=== PATIENT | male | born 1980 | race Caucasian/White ===

== ENCOUNTER → 2018-03-11 | Emergency (ER) | payer SELFPAY ==
[~2018-03-11] VITALS: Ht 165.1 cm; Wt 75.9 kg
[~2018-03-11] MED LIST: ATIVAN2 MG PO; PRINIVIL20 MG PO; ZESTRIL 20MG TA20 MG PO
[2018-03-11 13:48] VITALS: BP 150/88; TEMP 97.8
[2018-03-11 16:01] LABS: BASO % 0.5 % (0.0-2.0); EOS # 0.1 (0.0-0.7); EOS % 1.1 % (0-4.0); GRAN # 6.4 (1.4-6.5); GRAN % 76.1 % (42.2-75.2); HEMATOCRIT 39.1 % (42.0-52.0); LYMPH # 1.6 (1.2-3.4); LYMPH % 18.7 % (20.0-51.0); MEAN CELL VOLUME 67 fl (80.0-100.0); MEAN CORPUSCULAR HEMOGLOBIN 21 pg (27.0-31.0); MEAN CORPUSCULAR HGB CONC 31 g/dl (33.0-37.0); MEAN PLATELET VOLUME 11.9 fl (7.4-10.4); MONO # 0.3 (0.1-0.6); MONO % 3.2 % (1.7-9.3); PLATELET COUNT 153 K/mm3 (130-400); REDCELL DISTRIBUTION WIDTH-CV 14.8 % (11.5-14.5)
[2018-03-11 16:16] LABS: BILIRUBIN,TOTAL 0.8 mg/dL (0.0-1.0); CALCIUM 8.8 mg/dL (8.4-10.2); CREATININE, serum 0.9 mg/dL (0.66-1.25); TOTAL PROTEIN 6.8 gm/dL (6.4-8.2)
[2018-03-11 16:42] LABS: TSH w REFLEX 1.33 uIU/mL (0.465-4.680)
[2018-03-11 17:41] VITALS: PULSE 72
== END ==
LOC: COL.ER 13:39
PROVIDERS: Physician Assistant
DX: R07.89 Other chest pain (principal); F41.1 Generalized anxiety disorder; I10 Essential (primary) hypertension; G40.909 Epilepsy, unspecified, not intractable, without status epilepticus

== ENCOUNTER → 2018-05-26 | Outpatient (CLI) | payer BC | LOC: COL.RAD 07:29 | DX: K76.0 Fatty (change of) liver, not elsewhere classified (principal); K59.00 Constipation, unspecified ==

== ENCOUNTER 2018-09-29 20:53 | Emergency (ER) | payer BC ==
[~2018-09-29] VITALS: Ht 167.6 cm; Wt 79.5 kg
[2018-09-29 21:09] VITALS: BP 137/93; TEMP 97.5
[2018-09-29] MEDS ORDERED: CLARITIN 1010 MG/TAB PO (21:54)
[2018-09-29] MEDS ORDERED: ALLEGRA 180MG180 MG PO (21:54)
[2018-09-29 22:00] VITALS: PULSE 82
[2018-09-30] MEDS ORDERED: CARAFATE 1GM1 G PO (01:29)
[2018-09-30] MEDS ORDERED: ZANTAC 150MG T150 MG PO (01:29)
[2018-09-30] MEDS ORDERED: PRINIVIL10 MG PO (01:29)
== END 2018-09-29 22:00 | disposition home or self-care (01) ==
LOC: COL.ER 20:53
DX: J32.9 Chronic sinusitis, unspecified (principal); I10 Essential (primary) hypertension

== ENCOUNTER 2018-10-22 23:15 | Emergency (ER) | payer BC ==
[~2018-10-22] VITALS: Ht 167.6 cm; Wt 72.7 kg
[~2018-10-22 23:15] MED LIST changes: +ALLEGRA 180MG180 MG PO; +CARAFATE 1GM1 G PO; +CLARITIN 1010 MG/TAB PO; +PRINIVIL10 MG PO; +ZANTAC 150MG T150 MG PO
[2018-10-22 23:25] VITALS: TEMP 97.1
[2018-10-22] MEDS ORDERED: LINZESS145CAP PO (23:28)
[2018-10-22 23:50] LABS: BASO # 0.1 (0.0-0.2); BASO % 0.9 % (0.0-2.0); EOS # 0.5 (0.0-0.7); EOS % 6.5 % (0-4.0); GRAN % 52.8 % (42.2-75.2); HEMATOCRIT 40.3 % (42.0-52.0); HEMOGLOBIN 12.4 g/dl (13.5-18.0); LYMPH # 2.5 (1.2-3.4); LYMPH % 33.7 % (20.0-51.0); MEAN CELL VOLUME 67 fl (80.0-100.0); MEAN CORPUSCULAR HEMOGLOBIN 21 pg (27.0-31.0); MEAN CORPUSCULAR HGB CONC 31 g/dl (33.0-37.0); MEAN PLATELET VOLUME 11.7 fl (7.4-10.4); MONO # 0.4 (0.1-0.6); MONO % 5.2 % (1.7-9.3); PLATELET COUNT 178 K/mm3 (130-400); RED BLOOD COUNT 6.05 M/mm3 (4.20-5.60); REDCELL DISTRIBUTION WIDTH-CV 15.2 % (11.5-14.5)
[2018-10-23 00:04] LABS: ALANINE AMINOTRANSFERASE 31 U/L (21-72); ALBUMIN 4.5 gm/dL (3.5-5.0); ALKALINE PHOSPHATASE 65 U/L (50-136); ANION GAP 9 mmol/L (7-16); AST,SGOT 36 U/L (15-37); BLOOD UREA NITROGEN 13 mg/dL (9-20); C-REACTIVE PROTEIN < 0.5 mg/dL (0.0-0.9); CALCIUM 9.3 mg/dL (8.4-10.2); CARBON DIOXIDE 27 mmol/L (22-30); CHLORIDE 101 mmol/L (98-107); CREATININE, serum 1.01 (0.66-1.25); GLUCOSE 99 mg/dL (74-106); LIPASE 115 U/L (23-300); MAGNESIUM 1.6 mg/dL (1.6-2.3); SODIUM 137 mmol/L (137-145); TOTAL PROTEIN 7.5 gm/dL (6.4-8.2)
[2018-10-23 00:20] LABS: COLLECTION METHOD CLEAN CATCH
[2018-10-23 00:29] LABS: PH 6 (5-8); SQUAMOUS EPITHELIAL None Seen /hpf; URINE APPEARANCE Clear; URINE BACTERIA None Seen /hpf; URINE BILIRUBIN Negative (NEGATIVE); URINE BLOOD Negative (NEGATIVE); URINE COLOR Straw; URINE GLUCOSE Negative (NEGATIVE); URINE KETONE Negative (NEGATIVE); URINE LEUKOCYTE ESTERASE Negative (NEGATIVE); URINE NITRATE Negative (NEGATIVE); URINE PROTEIN(semi-quant) Negative (NEGATIVE); URINE RBC None Seen /hpf; URINE UROBILINOGEN Negative (NEGATIVE)
[2018-10-23] MEDS ORDERED: PROTONIX 40MG T40 MG PO (01:16)
[2018-10-23] MEDS ORDERED: ANTIVERT 25MG25 MG PO (01:16)
[2018-10-23 01:30] VITALS: BP 121/88; PULSE 96
== END 2018-10-23 01:30 | disposition home or self-care (01) ==
LOC: COL.ER 23:15
PROVIDERS: Emergency Medicine
DX: R42 Dizziness and giddiness (principal); R19.31 Right upper quadrant abdominal rigidity; I10 Essential (primary) hypertension
CPT/HCPCS: J7030

== ENCOUNTER → 2021-07-06 | Outpatient (CLI) | payer BC ==
[~2021-07-06] MED LIST changes: +ANTIVERT 25MG25 MG PO; +LINZESS145CAP PO; +PROTONIX 40MG T40 MG PO
== END ==
LOC: COL.RAD 12:45
DX: N50.811 Right testicular pain (principal)

== ENCOUNTER 2023-12-01 08:15 | Emergency (ER) | payer BC ==
[~2023-12-01] VITALS: Ht 170.2 cm; Wt 71.4 kg
[2023-12-01 08:20] VITALS: BP 114/81
[2023-12-01 08:50] LABS: COLLECTION METHOD CLEAN CATCH
[2023-12-01 08:55] LABS: URINE APPEARANCE CLEAR (CLEAR/HAZY); URINE BLOOD NEGATIVE (NEGATIVE); URINE COLOR YELLOW (YELLOW); URINE GLUCOSE NEGATIVE (NEGATIVE); URINE KETONE TRACE (NEGATIVE); URINE NITRATE NEGATIVE (NEGATIVE); URINE PROTEIN(semi-quant) NEGATIVE (NEGATIVE)
[2023-12-01 08:56] LABS: BASO % 0.5 % (0.0-2.0); EOS # 0.3 K/mm3 (0.0-0.7); EOS % 5.4 % (0.0-4.0); GRAN # 3.3 K/mm3 (1.4-6.5); GRAN % 57.4 % (42.2-75.2); HEMOGLOBIN 13.2 g/dl (13.5-18.0); LYMPH # 1.8 K/mm3 (1.2-3.4); LYMPH % 31.8 % (20.0-51.0); MEAN CELL VOLUME 68 fl (80.0-100.0); MEAN CORPUSCULAR HEMOGLOBIN 21 pg (27-31); MEAN CORPUSCULAR HGB CONC 31 g/dl (33.0-37.0); MEAN PLATELET VOLUME 11.5 fl (7.4-10.4); MONO # 0.3 K/mm3 (0.1-0.6); MONO % 4.7 % (1.7-9.3); PLATELET COUNT 167 K/mm3 (130-400); RED BLOOD COUNT 6.37 M/mm3 (4.20-5.60); REDCELL DISTRIBUTION WIDTH-CV 15.1 % (11.5-14.5)
[2023-12-01] MEDS ORDERED: Iohexol 300 - 100 ML VIAL IV ONE (08:58)
[2023-12-01] MEDS ORDERED: NS 100 ML IV SCH (08:58)
[2023-12-01 09:12] LABS: ALBUMIN 4.1 g/dL (3.5-5.0); BILIRUBIN,TOTAL 0.6 mg/dL (0.2-1.2); CALCIUM 9.1 mg/dL (8.4-10.2); CREATININE, serum 1.03 mg/dL (0.72-1.25); POTASSIUM 4.2 mEq/L (3.5-4.5); TOTAL PROTEIN 6.5 g/dl (6.2-8.1)
[2023-12-01] MEDS ORDERED: FLEXERIL 1010 MG/TAB PO (09:20)
[2023-12-01] MEDS ORDERED: VOLTAREN 75 DR75 MG PO (09:20)
[2023-12-01 09:43] VITALS: PULSE 81; TEMP 97.2
== END 2023-12-01 09:44 | disposition home or self-care (01) ==
LOC: COL.ER 08:15
PROVIDERS: Family Medicine
DX: M54.50 Low back pain, unspecified (principal); D50.9 Iron deficiency anemia, unspecified; R63.4 Abnormal weight loss
CPT/HCPCS: Q9967